=== PATIENT | male | born 1965 | race Caucasian/White ===

== ENCOUNTER 2016-07-01 16:36 | Emergency (ER) | payer OTHER ==
[2016-07-01 18:01] VITALS: BP 132/85
--- NOTE | 2016-08-03 17:29 | UC ---
Gabriel Neal Janilya, scribed for Lizbeth Rider DO on 07/01/16 at 1716 . Abdominal Pain Male HPI - HPI Summary HPI Summary: A 51 y/o male came in to [facility] presenting w/ a gradual onset of intermittent LLQ pain starting a few hours ago. Pain does not radiate. Severity rated 9/10. Pt reports that it's been progressively getting worse. Walking, stumping left foot down, and bumps on the road aggravate the pain. In addition, pt states that he feels mildly lightheaded. He also reports that yesterday his urine was extremely dark; however, it has improved today. Pt denies n/v/d, SOB, dysuria. There is fever of 101.5 F measured here. Pt last had bowel movement today: it was a formed stool w/o any blood. - History of Current Complaint Chief Complaint: UCAbdominalPain Stated Complaint: ABD PAIN Hx Obtained From: Patient Onset/Duration: Gradual Onset, Lasting Days, Still Present Timing: Constant Severity Initially: Moderate Severity Currently: Moderate Pain Intensity: 9 Location: Discrete At: LLQ Radiates: No Radiates to: LLQ Character: Sharp Aggravating Factor(s):: Nothing Alleviating Factor(s): Nothing Associated Signs And Symptoms: Positive: Dizzy, Urinary Symptoms - Allergies/Home Medications Allergies/Adverse Reactions: Allergies Allergy/AdvReac Type Severity Reaction Status Date / Time Erythromycin Allergy Intermediate Rash Verified 07/01/16 16:52 Home Medications: Home Medications Bismuth Subsalicylate [Pepto Bismol] 2 tab PO PRN 07/01/16 [History] Pregabalin CAP(*) [Lyrica CAP(*)] 150 mg PO BID 07/01/16 [History Confirmed ] traMADol TAB* [Ultram*] 50 mg PO TID 07/01/16 [History Confirmed 07/01/16] PMH/Surg Hx/FS Hx/Imm Hx Previously Healthy: No Endocrine History Of: Denies: Diabetes, Thyroid Disease, Hyperthyroidism, Hypothyroidism, Dyslipidemia Cardiovascular History Of: Reports: Hypertension Denies: Cardiac Disorders, Pacemaker/ICD, Myocardial Infarction, Congestive Heart Failure, Atrial Fibrillation, Deep Vein Thrombosis, Bleeding Disorders Respiratory History Of: Denies: COPD, Asthma, Bronchitis, Pneumonia, Pulmonary Embolism GI/ History Of: Reports: Gastroesophageal Reflux, Kidney Stones - HX OF - STATES HE PASSED IT Denies: Ulcer, Gastrointestinal Bleed, Gall Bladder Disease, Diverticulitis, Renal Disease, Urosepsis Neurological History Of: Denies: TIA, CVA, Dementia, Seizures, Migraine Psychological History Of: Reports: Anxiety - CONTROL WITH MEDS, Depression - CONTROL WITH MEDS Cancer History Of: Denies: Lung Cancer, Colorectal Cancer, Breast Cancer, Prostate Cancer, Cervical Cancer Other History Of: Negative For: HIV, Hepatitis B, Hepatitis C, Anticoagulant Therapy - Surgical History Surgical History: Yes Surgery Procedure, Year, and Place: TONSILLECTOMY A CHILD,. WISDOM TEETH EXTRACTION A TEENAGER. 2015 [place]OSCOPY, [facility] [place]. [place]/09/2015 LEFT THUMB CARPOMETACARPAL INJECTION AND MASS EXCISION FROM LEFT THUMB, [facility] [place]. - Family History Known Family History: Positive: Diabetes - mother, Other - obesity and diverticulitis - mother Negative: Cardiac Disease, Hypertension - Social History Alcohol Use: None Substance Use Type: None Smoking Status (MU): Current Every Day Smoker Type: Cigarettes Amount Used/How Often: 1 ppd Length of Time of Smoking/Using Tobacco: SINCE A TEENAGER (14 OR 15) Have You Smoked in the Last Year: Yes Household Exposure Type: Cigarettes - Immunization History Most Recent Influenza Vaccination: 2012 Most Recent Tetanus Shot: 2012 Most Recent Pneumonia Vaccination: never Review of Systems Constitutional: Other - lightheaded Skin: Negative Eyes: Negative ENT: Negative Respiratory: Negative Cardiovascular: Negative Gastrointestinal: Abdominal Pain - LLQ Genitourinary: Other - dark urine yesterday, improved today Motor: Negative Neurovascular: Negative Musculoskeletal: Negative Neurological: Negative Psychological: Negative All Other Systems Reviewed And Are Negative: Yes Physical Exam Triage Information Reviewed: Yes Appearance: Well-Appearing, No Pain Distress, Well-Nourished Vital Signs: Initial Vital Signs Temp 101.5 F 07/01/16 16:47 Pulse 107 07/01/16 16:47 Resp 16 07/01/16 16:47 BP 133/88 07/01/16 16:47 Pulse Ox 97 07/01/16 16:47 Vital Signs Reviewed: Yes Eyes: Positive: Conjunctiva Clear. Negative: Discharge ENT: Positive: Hearing grossly normal. Negative: Muffled/hoarse voice Neck exam: Normal Neck: Positive: Supple Respiratory: Positive: Lungs clear, Normal breath sounds, No respiratory distress, No accessory muscle use Cardiovascular: Positive: No Murmur, Tachycardia Abdomen Description: Positive: Guarding - LLQ. Negative: Nontender - Exquisite tenderness and guarding of LLQ, possible tenderness in RLQ, no CVA tenderness., Soft, CVA Tenderness (R), CVA Tenderness (L) Bowel Sounds: Positive: Present Musculoskeletal Exam: Normal Neurological: Positive: Alert, Muscle Tone Normal Psychological Exam: Normal Psychological: Positive: Age Appropriate Behavior Skin Exam: Normal Skin: Positive: Other - warm, dry, normal color Abd Pain Male Course/Dx - Differential Dx/Clinical Impression Differential Diagnosis/HQI/PQRI: Appendicitis, Ureteral Stone, Urinary Tract Infection, Other - diverticulitis Provider Diagnoses: abd pain unknown jakub Discharge - Discharge Plan Condition: Stable Disposition: TRANS HIGHER LVL OF CARE FAC Referrals: Thompson Lopez, GROUP SOCIAL WORKER [Primary Care Provider] - The documentation as recorded by the Gabriel trevino Janilya accurately reflects the service I personally performed and the decisions made by , Lizbeth Rider DO.
== END 2016-07-01 18:10 | disposition short-term general hospital (02) ==
LOC: UCEAST 16:36
DX: R10.32 Left lower quadrant pain (principal); R42 Dizziness and giddiness; R50.9 Fever, unspecified; Z88.1 Allergy status to other antibiotic agents; F17.210 Nicotine dependence, cigarettes, uncomplicated
CPT/HCPCS: 81002; 87086; 99213; G0463

== ENCOUNTER 2016-07-01 18:31 | Emergency (ER) | payer OTHER ==
[2016-07-01] MEDS ORDERED: Ondansetron INJ* 2 MG/ML VIAL IV ONE (19:19)
[2016-07-01] MEDS ORDERED: Morphine INJ* 4 MG/ML 1 ML CARPUJECT IV ONE ×2 (19:19→22:01)
[2016-07-01] MEDS ORDERED: NS 0.9% 1000 ML* 1,000 ML IV ONE (19:19)
--- NOTE | 2016-07-01 19:39 | ED ---
Laura Neal Michael, scribed for Saeid Cheema MD on 07/01/16 at 1925 . Abdominal Pain/Male - HPI Summary HPI Summary: 51 y/o male was BIBA to the ED presenting with sharp LLQ pain that started 3 days ago. The pt reports that the abd pain worsened this morning, and it is aggravated with movement. He also c/o a fever with a max temperature of 101.5 at Urgent Care today. Currently at the ED, the pt's temperature is 98.1. He denies vomiting today and dysuria. The PMHx is significant for GBS. The pt takes 600 mg of Ibuprofen TID for one year. - History of Current Complaint Chief Complaint: EDAbdPain Stated Complaint: LLQ PAIN Time Seen by Provider: 07/01/16 19:13 Hx Obtained From: Patient, EMS, Medical Records Onset/Duration: Gradual Onset, Lasting Days, Still Present, Worse Since - this morning Timing: Constant Severity Initially: Mild Severity Currently: Moderate Pain Intensity: 3 Pain Scale Used: 0-10 Numeric Location: Discrete At: LLQ Radiates: No Character: Sharp Aggravating Factor(s): Movement Alleviating Factor(s): Nothing Associated Signs And Symptoms: Positive: Fever. Negative: Urinary Symptoms, Vomiting - Allergies/Home Medications Allergies/Adverse Reactions: Allergies Allergy/AdvReac Type Severity Reaction Status Date / Time Erythromycin Allergy Intermediate Rash Verified 07/01/16 16:52 PMH/Surg Hx/FS Hx/Imm Hx Endocrine/Hematology History: Denies: Hx Anticoagulant Therapy, Hx Diabetes, Hx Thyroid Disease Cardiovascular History: Reports: Hx Hypertension Denies: Hx Congestive Heart Failure, Hx Deep Vein Thrombosis, Hx Myocardial Infarction, Hx Pacemaker/ICD Respiratory History: Denies: Hx Asthma, Hx Chronic Obstructive Pulmonary Disease (COPD), Hx Lung Cancer, Hx Pneumonia, Hx Pulmonary Embolism GI History: Reports: Hx Gastroesophageal Reflux Disease Denies: Hx Gall Bladder Disease, Hx Gastrointestinal Bleed, Hx Ulcer, Hx Urosepsis History: Reports: Hx Kidney Stones - HX OF - STATES HE PASSED IT Denies: Hx Renal Disease Musculoskeletal History: Reports: Hx Arthritis - OSTEOARTHRITIS LEFT THUMB Sensory History: Reports: Hx Contacts or Glasses Denies: Hx Hearing Aid Opthamlomology History: Reports: Hx Contacts or Glasses Neurological History: Reports: Other Neuro Impairments/Disorders - [place] Admission Dx Denies: Hx Dementia, Hx Migraine, Hx Seizures, Hx Transient Ischemic Attacks (TIA) Psychiatric History: Reports: Hx Anxiety - CONTROL WITH MEDS, Hx Depression - CONTROL WITH MEDS Denies: Hx Panic Disorder - Surgical History Surgery Procedure, Year, and Place: TONSILLECTOMY A CHILD,. WISDOM TEETH EXTRACTION A TEENAGER. 2015 COLONOSCOPY, [facility]. 06/09/2015 LEFT THUMB CARPOMETACARPAL INJECTION AND MASS EXCISION FROM LEFT THUMB, [facility]. Hx Anesthesia Reactions: No Infectious Disease History: No Infectious Disease History: Reports: Hx of Known/Suspected MRSA Denies: Hx Clostridium Difficile, Hx Hepatitis, Hx Human Immunodeficiency Virus (HIV), Hx Shingles, Hx Tuberculosis, Hx Known/Suspected VRE, Hx Known/ Suspected VRSA, History Other Infectious Disease, Traveled Outside the [place] in Last 30 Days - Family History Known Family History: Positive: None - Social History Occupation: Unemployed Lives: With Family Alcohol Use: None Substance Use Type: Reports: None Smoking Status (MU): Current Every Day Smoker Type: Cigarettes Amount Used/How Often: 1 ppd Length of Time of Smoking/Using Tobacco: SINCE A TEENAGER (14 OR 15) Have You Smoked in the Last Year: Yes Review of Systems Positive: Fever Positive: Abdominal Pain. Negative: Vomiting Negative: dysuria All Other Systems Reviewed And Are Negative: Yes Physical Exam Triage Information Reviewed: Yes Vital Signs On Initial Exam: Initial Vitals Temp Pulse Resp BP Pulse Ox 98.1 F 103 17 141/95 94 07/01/16 18:53 07/01/16 18:53 07/01/16 18:53 07/01/16 18:53 07/01/16 18:53 Vital Signs Reviewed: Yes Appearance: Positive: Well-Appearing, Pain Distress - mild discomfort Skin: Positive: Warm Head/Face: Positive: Normal Head/Face Inspection Eyes: Positive: WILY ENT: Positive: Hearing grossly normal Neck: Positive: Supple Respiratory/Lung Sounds: Positive: Clear to Auscultation, Breath Sounds Present Cardiovascular: Positive: RRR Abdomen Description: Positive: Soft, Other: - moderate tender llq with guarding Bowel Sounds: Positive: Present Musculoskeletal: Positive: Strength/ROM Intact Neurological: Positive: Sensory/Motor Intact, Alert, Oriented to Person Place, Time Psychiatric: Positive: Affect/Mood Appropriate - [place] Coma Scale Coma Scale Total: 15 Diagnostics - Vital Signs Vital Signs Temp Pulse Resp BP Pulse Ox 02/18/17 18:53 98.1 F 103 17 141/95 94 - Laboratory Result Diagrams: 07/01/16 19:30 07/01/16 19:30 Lab Statement: Any lab studies that have been ordered have been reviewed, and results considered in the medical decision making process. - CT ABD/PEL CT CT Interpretation: Positive (See Comments) - 1. DIVERTICULITIS, WITHOUT LOCULATED FLUID COLLECTION TO SUGGEST ABSCESS. 2. FATTY LIVER. 3. 1.1 CM LEFT ADRENAL NODULE. AN INCIDENTAL FINDING IN A PATIENT WITHOUT HISTORY OF MALIGNANCY, THIS CAN BE FOLLOWED UP WITH ONE YEAR FOLLOW-UP ADRENAL PROTOCOL CT OR ADRENAL PROTOCOL MRI OF THE ABDOMEN CT Interpretation Completed By: Radiologist Re-Evaluation - Re-Evaluation First Eval Change: Improved Abdominal Pain Fem Course/Dx - Diagnoses Provider Diagnoses: Diverticulitis Discharge - Discharge Plan Condition: Stable Disposition: HOME Prescriptions: Levofloxacin TAB* [Levaquin TAB*] 500 mg PO DAILY #7 tab Metronidazole [Flagyl 500 MG TAB] 500 mg PO TID #20 tab Patient Education Materials: Diverticulitis (ED) Referrals: Thompson Lopez, SOLAR SALES ASSESSOR [Primary Care Provider] - Additional Instructions: You will follow up with Dr. Lopez within the next 3-5 days. Please return to the ED if your symptoms worsen. The documentation as recorded by the Laura trevino Michael accurately reflects the service I personally performed and the decisions made by me, Saeid Cheema MD.
[2016-07-01 19:49] LABS: Hematocrit 48 % (42-52); Hemoglobin 16.3 g/dl (14.0-18.0); Mean Corpuscular HGB Conc 34 g/dl (31-36); Mean Corpuscular Hemoglobin 29 pg (27-31); Mean Corpuscular Volume 84 fL (80-94); Mean Platelet Volume 7 um3 (7.4-10.4); Red Blood Count 5.72 10^6/ul (4.0-5.4); Red Cell Distribution Width 14 % (10.5-15)
[2016-07-01 20:03] LABS: Albumin 4.4 g/dL (3.2-5.2); BUN/Creatinine Ratio 28.4 (8-20); C Reactive Protein 23.86 mg/L (< 5.00); Calcium 9.6 mg/dL (8.6-10.3); EGFR African American 128.2 (>60); EGFR Non-African American 99.7 (>60); Globulin 2.9 g/dL (2-4); Magnesium 2.2 mg/dL (1.9-2.7); Potassium 3.9 mmol/L (3.5-5.0); Total Bilirubin 0.4 mg/dL (0.2-1.0); Total Protein 7.3 g/dL (6.4-8.9)
[2016-07-01] MEDS ORDERED: Iohexol 300* (CONTRAST) 10 ML SDV IV ONE (20:31)
[2016-07-01 21:00] LABS: Urine Bilirubin Negative (Negative); Urine Glucose Negative (Negative); Urine Nitrite Negative (Negative)
--- NOTE | 2016-07-01 21:43 | RAD ---
CLINICAL HISTORY: Left lower quadrant pain COMPARISON: None TECHNIQUE: Multiple contiguous axial CT scans were obtained of the abdomen and pelvis after the administration of intravenous contrast. Coronal and sagittal multiplanar reformations are submitted for review. Oral contrast was administered. Delayed images were obtained through the abdomen FINDINGS: LUNG BASES: The lung bases are clear. LIVER: The liver is diffusely low in attenuation compared to the spleen. There are no focal hepatic parenchymal masses. BILE DUCTS: There is no intrahepatic or extrahepatic biliary dilatation. GALLBLADDER: The gallbladder is normal, without pericholecystic inflammatory change. PANCREAS: The pancreas is normal, without mass or ductal dilatation. SPLEEN: Normal in size and appearance. UPPER GI TRACT: Evaluation of the gastrointestinal tract is limited by incomplete gastric distention. There is a small sliding hiatal hernia SMALL BOWEL AND MESENTERY: The small bowel is normal in contour, course, and caliber. There is no obstruction or dilatation. COLON: There is diverticulosis of the descending colon with inflammatory change at the descending-sigmoid colon junction. There is no loculated fluid collection to suggest abscess. ADRENALS: There is a 1.1 cm nodule of the left adrenal measuring 70 Hounsfield units in attenuation. KIDNEYS: The kidneys are normal in shape, size, contour, and axis. There is no hydronephrosis or nephrolithiasis. BLADDER: The bladder is smooth in contour. PELVIC ORGANS: The prostate gland is normal. The seminal vesicles are symmetric. AORTA: The aorta is normal. IVC: Unremarkable LYMPH NODES: There is no lymphadenopathy by size criteria. ABDOMINAL WALL: There is no evidence for abdominal wall hernia. BONES AND SOFT TISSUES: There are mild diffuse degenerative changes. OTHER: None IMPRESSION: 1. DIVERTICULITIS, WITHOUT LOCULATED FLUID COLLECTION TO SUGGEST ABSCESS. 2. FATTY LIVER. 3. 1.1 CM LEFT ADRENAL NODULE. AN INCIDENTAL FINDING IN A PATIENT WITHOUT HISTORY OF MALIGNANCY, THIS CAN BE FOLLOWED UP WITH ONE YEAR FOLLOW-UP ADRENAL PROTOCOL CT OR ADRENAL PROTOCOL MRI OF THE ABDOMEN
[2016-07-01] MEDS ORDERED: metroNIDAZOLE IV 500 MG/100ML* 500 MG/100 ML BAG IVPB ONE (21:46)
[2016-07-01] MEDS ORDERED: Levofloxacin 500 MG IVPREMIX(* 500 MG/100 ML BAG IVPB ONE (21:46)
[2016-07-01] MEDS ORDERED: Morphine INJ* 4 MG/ML 1 ML CARPUJECT ONE (22:03)
[2016-07-02 00:18] VITALS: BP 135/83
== END 2016-07-02 00:18 | disposition home or self-care (01) ==
LOC: ED 18:31
DX: K57.92 Diverticulitis of intestine, part unspecified, without perforation or abscess without bleeding (principal); F17.210 Nicotine dependence, cigarettes, uncomplicated; G61.0 Guillain-Barre syndrome; I10 Essential (primary) hypertension; Z87.442 Personal history of urinary calculi; F41.9 Anxiety disorder, unspecified; F32.9 Major depressive disorder, single episode, unspecified; K76.0 Fatty (change of) liver, not elsewhere classified
CPT/HCPCS: 36415; 74177; 80053; 81003; 83605; 83690; 83735; 85025; 86140; 99285; J1956; J2270; J2405; J3490; Q9967